=== PATIENT | male | born 1940 | race Caucasian/White ===

== ENCOUNTER 2017-07-08 05:46 | Day surgery (SDC) | payer MEDICARE, BC, OTHER ==
[2017-07-08] MEDS: LR 1,000 ML IV (06:45)
[2017-07-08] MEDS: LIDOCAINE 1% SDV INJ 30 ML VIAL As Ordered (07:00)
[2017-07-08] MEDS: LIDOCAINE VISCOUS 2% SOLN 15ML UDC As Ordered (07:00)
[2017-07-08] MEDS: EPINEPHrine 1MG/10ML SYRINGE 1.5IN As Ordered (07:00)
[2017-07-08] MEDS: THROMBIN SOLN 5,000 UNITS VIAL As Ordered (07:00)
[2017-07-08] MEDS ORDERED: ePHEDrine SULFATE 25 MG/5 ML(5MG/ML) SYRINGE As Ordered (07:49)
[2017-07-08] MEDS ORDERED: ROCURONIUM BROMIDE 50 MG/5 ML VIAL As Ordered (07:49)
[2017-07-08] MEDS ORDERED: fentaNYL 100 MCG/2 ML INJECTION (J3010) As Ordered (07:49)
[2017-07-08] MEDS ORDERED: PROPOFOL 200 MG/20 ML VIAL As Ordered (07:49)
[2017-07-08] MEDS ORDERED: LIDOCAINE 2% INJ 100 MG/5 ML SDV (FOR ANES.) As Ordered (07:49)
[2017-07-08] MEDS ORDERED: MIDAZOLAM INJ 2 MG/2 ML VIAL (J2250) As Ordered (07:49)
[2017-07-08] MEDS: CETACAINE SPRAY 5GM As Ordered (07:58)
[2017-07-08] MEDS ORDERED: METOCLOPRAMIDE INJ 10MG/2ML VIAL (J2765) As Ordered (08:08)
[2017-07-08] MEDS ORDERED: ONDANSETRON 4MG/2ML VIAL (J2405) As Ordered (08:08)
[2017-07-08] MEDS ORDERED: GLYCOPYRROLATE INJ 0.2 MG/ML 2 ML VIAL As Ordered (08:11)
[2017-07-08] MEDS ORDERED: NEOSTIGMINE 10 MG/10 ML VIAL (J2710) As Ordered (08:11)
[2017-07-08] MEDS ORDERED: SUGAMMADEX SODIUM 500 MG/5 ML VIAL (BRIDION) As Ordered (08:13)
[2017-07-08] MEDS ORDERED: ONDANSETRON 4MG/2ML VIAL (J2405) IV (08:45)
[2017-07-08] MEDS ORDERED: PERCOCET 5MG/325MG TAB PO (08:45)
[2017-07-08] MEDS ORDERED: fentaNYL 100 MCG/2 ML INJECTION (J3010) IV (08:45)
[2017-07-08] MEDS ORDERED: LR 1,000 ML IV (08:45)
[2017-07-08] MEDS ORDERED: METOCLOPRAMIDE INJ 10MG/2ML VIAL (J2765) IV (08:45)
== END 2017-07-08 09:57 | disposition home or self-care (01) ==
LOC: M SDC 05:46
DX: C34.32 Malignant neoplasm of lower lobe, left bronchus or lung (principal); R10.12 Left upper quadrant pain; K21.9 Gastro-esophageal reflux disease without esophagitis; E78.00 Pure hypercholesterolemia, unspecified; Z79.82 Long term (current) use of aspirin; Z87.891 Personal history of nicotine dependence; Z79.899 Other long term (current) drug therapy; Z88.0 Allergy status to penicillin
CPT/HCPCS: 31623

== ENCOUNTER → 2017-07-14 | Outpatient (REF) | payer MEDICARE, BC, OTHER ==
[2017-07-17 12:53] LABS: IONIZED CALCIUM 5.3 MG/DL (4.5-5.3)
== END ==
LOC: M LAB REF 16:53
DX: C34.82 Malignant neoplasm of overlapping sites of left bronchus and lung (principal)
CPT/HCPCS: 82330

== ENCOUNTER → 2017-07-17 | Outpatient (CLI) | payer MEDICARE, BC, OTHER | LOC: M CARPUL 17:07 | DX: C34.32 Malignant neoplasm of lower lobe, left bronchus or lung (principal) | CPT/HCPCS: 94060 ==

== ENCOUNTER → 2017-07-30 | Outpatient (REF) | payer MEDICARE, OTHER ==
[2017-07-30 17:35] LABS: INR 0.95; PROTHROMBIN TIME 12.8 SECONDS (12.4-14.5)
[2017-07-30 17:36] LABS: PARTIAL THROMBOPLASTIN TIME 36.6 SECONDS (26.8-37.9)
== END ==
LOC: M LAB REF 16:35
DX: C34.32 Malignant neoplasm of lower lobe, left bronchus or lung (principal); C79.51 Secondary malignant neoplasm of bone; Z79.01 Long term (current) use of anticoagulants
CPT/HCPCS: 85610

== ENCOUNTER → 2017-08-05 | Outpatient (CLI) | payer MEDICARE, BC, OTHER ==
[~2017-08-05] MED LIST: CLINDAMYCIN 600 MG/50 ML PREMIX BAG As Ordered; LIDOCAINE 2% MDV 20 ML VIAL As Ordered
== END | disposition home or self-care (01) ==
LOC: M IRPRO 10:22
DX: C34.90 Malignant neoplasm of unspecified part of unspecified bronchus or lung (principal)
CPT/HCPCS: 36561

== ENCOUNTER → 2017-08-12 | Outpatient (CLI) | payer MEDICARE, OTHER | LOC: M ONCR 10:17 | DX: C34.32 Malignant neoplasm of lower lobe, left bronchus or lung (principal); C79.51 Secondary malignant neoplasm of bone | CPT/HCPCS: G0463 ==

== ENCOUNTER 2017-08-14 09:04 | Outpatient (RCR) | payer MEDICARE, OTHER | END 2017-09-09 | LOC: M ONCR 09:04 | DX: C79.51 Secondary malignant neoplasm of bone (principal); C34.32 Malignant neoplasm of lower lobe, left bronchus or lung | CPT/HCPCS: 77300 ==

== ENCOUNTER → 2017-10-15 | Outpatient (CLI) | payer MEDICARE, OTHER, BC | LOC: M ONCR 13:21 | DX: C34.32 Malignant neoplasm of lower lobe, left bronchus or lung (principal); C79.51 Secondary malignant neoplasm of bone | CPT/HCPCS: G0463 ==

== ENCOUNTER → 2017-10-27 | Outpatient (CLI) | payer MEDICARE, BC, OTHER ==
[~2017-10-27] MED LIST changes: -CLINDAMYCIN 600 MG/50 ML PREMIX BAG As Ordered; +GASTROGRAFIN SOLUTION 30ML (Q9963) As Ordered; +ISOVUE-370 76% 100ML VIAL (Q9967) As Ordered; -LIDOCAINE 2% MDV 20 ML VIAL As Ordered
== END ==
LOC: M RAD 09:43
DX: C79.51 Secondary malignant neoplasm of bone (principal); C34.32 Malignant neoplasm of lower lobe, left bronchus or lung; K57.30 Diverticulosis of large intestine without perforation or abscess without bleeding
CPT/HCPCS: Q9963

== ENCOUNTER 2017-11-27 09:16 | Day surgery (SDC) | payer MEDICARE, BC, OTHER ==
[~2017-11-27 09:16] MED LIST changes: -GASTROGRAFIN SOLUTION 30ML (Q9963) As Ordered; -ISOVUE-370 76% 100ML VIAL (Q9967) As Ordered; +MIDAZOLAM INJ 2 MG/2 ML VIAL (J2250) As Ordered; +TROPICAMIDE 1% OPHTH SOLN 2ML OS; +fentaNYL 100 MCG/2 ML INJECTION (J3010) As Ordered
[2017-11-27] MEDS: PROPARACAINE 0.5% OPHTH SOL 15ML OS (10:24)
[2017-11-27] MEDS: OFLOXACIN 0.3 % (OCUFLOX) OPTH SOL 5ML OS (10:24)
[2017-11-27] MEDS: PHENYLEPHRINE 2.5% OPHTH SOL 2ML OS (10:25)
[2017-11-27] MEDS: POVIDONE-IODINE 5% OPHTH PREP SOL 30ML As Ordered (11:32)
[2017-11-27] MEDS: DUOVISC (0.50ML VISCOAT/0.55ML PROVISC) OPHTH KIT As Ordered (11:36)
[2017-11-27] MEDS: MOXIFLOXACIN IN BSS 0.25MG/0.25ML INTRACAMERAL INJ (OR EYE ONLY)(J2280) As Ordered (11:36)
[2017-11-27] MEDS: BALANCED SALT IRRIGATION SOLUTION 500ML BAG (FOR OR EYE MACHINE) As Ordered (11:36)
[2017-11-27] MEDS: LIDOCAINE 0.75%/EPINEPHRINE 0.025% IN BSS 1ML SYR INTRACAMERAL (OR ONLY) As Ordered (11:36)
== END 2017-11-27 12:25 | disposition home or self-care (01) ==
LOC: M SDC 09:16
DX: H25.12 Age-related nuclear cataract, left eye (principal); K21.9 Gastro-esophageal reflux disease without esophagitis; Z88.0 Allergy status to penicillin; Z79.82 Long term (current) use of aspirin; Z79.899 Other long term (current) drug therapy; Z87.891 Personal history of nicotine dependence; Z92.21 Personal history of antineoplastic chemotherapy; Z85.118 Personal history of other malignant neoplasm of bronchus and lung
CPT/HCPCS: 66984

== ENCOUNTER 2017-12-04 06:29 | Day surgery (SDC) | payer MEDICARE, BC, OTHER ==
[2017-12-04] MEDS: PROPARACAINE 0.5% OPHTH SOL 15ML OD (06:52)
[2017-12-04] MEDS: TROPICAMIDE 1% OPHTH SOLN 2ML OD (06:52)
[2017-12-04] MEDS: PHENYLEPHRINE 2.5% OPHTH SOL 2ML OD (06:52)
[2017-12-04] MEDS: OFLOXACIN 0.3 % (OCUFLOX) OPTH SOL 5ML OD (06:52)
[2017-12-04] MEDS ORDERED: MIDAZOLAM INJ 2 MG/2 ML VIAL (J2250) As Ordered (07:08)
[2017-12-04] MEDS ORDERED: fentaNYL 100 MCG/2 ML INJECTION (J3010) As Ordered (07:08)
[2017-12-04] MEDS: BALANCED SALT IRRIGATION SOLUTION 500ML BAG (FOR OR EYE MACHINE) As Ordered (08:39)
[2017-12-04] MEDS: DUOVISC (0.50ML VISCOAT/0.55ML PROVISC) OPHTH KIT As Ordered ×2 (08:39→08:42)
[2017-12-04] MEDS: LIDOCAINE 0.75%/EPINEPHRINE 0.025% IN BSS 1ML SYR INTRACAMERAL (OR ONLY) As Ordered (08:39)
[2017-12-04] MEDS: POVIDONE-IODINE 5% OPHTH PREP SOL 30ML As Ordered (08:39)
[2017-12-04] MEDS: MOXIFLOXACIN IN BSS 0.25MG/0.25ML INTRACAMERAL INJ (OR EYE ONLY)(J2280) As Ordered (08:39)
== END 2017-12-04 09:12 | disposition home or self-care (01) ==
LOC: M SDC 06:29
DX: H25.11 Age-related nuclear cataract, right eye (principal); K21.9 Gastro-esophageal reflux disease without esophagitis; Z88.0 Allergy status to penicillin; Z87.891 Personal history of nicotine dependence; Z79.82 Long term (current) use of aspirin; Z79.899 Other long term (current) drug therapy; Z85.118 Personal history of other malignant neoplasm of bronchus and lung
CPT/HCPCS: 66984

== ENCOUNTER → 2017-12-23 | Outpatient (CLI) | payer MEDICARE, BC, OTHER | LOC: M RAD 15:48 | DX: C34.90 Malignant neoplasm of unspecified part of unspecified bronchus or lung (principal); J90 Pleural effusion, not elsewhere classified ==

== ENCOUNTER 2017-12-24 19:00 | Inpatient (IN) | payer MEDICARE, BC, OTHER ==
[2017-12-24] MEDS: NS 500 ML IV (19:30)
[2017-12-24 19:37] LABS: BASO # 0.1 10^3/uL (0.0-0.2); BASO % 0.5 % (0.0-1.0); EOS # 0.1 10^3/uL (0.0-0.50); EOS % 0.9 % (0.0-3.0); HEMATOCRIT 34.1 % (42.0-52.0); HEMOGLOBIN 11.4 g/dl (13.5-17.5); IMMATURE GRANULOCYTE % 1.2 % (0-3.0); LYMPH # 1.4 10^3/uL (1.5-4.5); LYMPH % 9.4 % (24.0-44.0); MEAN CORPUSCULAR HEMOGLOBIN 29.6 pg (27.0-33.0); MEAN CORPUSCULAR HGB CONC 33.4 g/dl (32.0-36.5); MEAN CORPUSCULAR VOLUME 88.6 fl (80.0-96.0); MONO # 1.4 10^3/uL (0.0-0.8); MONO % 9.5 % (0.0-5.0); NEUTROPHILS # 11.5 10^3/uL (1.8-7.7); NEUTROPHILS % 78.5 % (36.0-66.0); PLATELET COUNT, AUTOMATED 259 10^3/uL (150-450); RED BLOOD COUNT 3.85 10^6/uL (4.30-6.10); RED CELL DISTRIBUTION WIDTH 14.1 % (11.5-14.5); WHITE BLOOD COUNT 14.7 10^3/uL (4.0-10.0)
[2017-12-24 19:47] LABS: LACTIC ACID SEPSIS PROTOCOL 1.6 MMOL/L (0.4-2.0)
[2017-12-24 20:02] LABS: ALBUMIN 2.3 GM/DL (3.2-5.2); ALBUMIN/GLOBULIN RATIO 0.59 (1.00-1.93); ALKALINE PHOSPHATASE 169 U/L (45-117); ALT/SGPT 67 U/L (12-78); ANION GAP 10 MEQ/L (8-16); AST/SGOT 66 U/L (7-37); BILIRUBIN,DIRECT 0.2 MG/DL (0.0-0.2); BILIRUBIN,TOTAL 0.5 MG/DL (0.2-1.0); BLOOD UREA NITROGEN 12 MG/DL (7-18); CALCIUM LEVEL 7.8 MG/DL (8.8-10.2); CARBON DIOXIDE LEVEL 25 MEQ/L (21-32); CHLORIDE LEVEL 95 MEQ/L (98-107); CPK CREATINE PHOSPHOKINASE 104 U/L (39-308); CREATININE FOR GFR 0.69 MG/DL (0.70-1.30); GLOMERULAR FILTRATION RATE > 60.0 (>42); GLUCOSE, FASTING 220 MG/DL (70-100); MB/CK RELATIVE INDEX 9.81 (< OR =4); POTASSIUM SERUM 4.5 MEQ/L (3.5-5.1); SODIUM LEVEL 130 MEQ/L (136-145); TOTAL PROTEIN 6.2 GM/DL (6.4-8.2); TROPONIN I 2.48 NG/ML (< 0.10)
[2017-12-24] MEDS: MOXIFLOXACIN HCL 400 MG in APPROPRIATE DILUENT 1 EA IV (20:22)
[2017-12-24 20:37] LABS: ABG BASE EXCESS -2.5 (-2.0-2.0); ABG HCO3 19.7 MEQ/L (22.0-26.0); ABG O2 SATURATION 91.9 % (95.0-99.0); ABG PARTIAL PRESSURE CO2 26.8 mmHg (35.0-45.0); ABG PARTIAL PRESSURE O2 61.3 mmHg (75.0-100.0); ABG STANDARD HCO3 22.3 MEQ/L (22.0-26.0); ABG TOTAL CO2 20.6 MEQ/L (23.0-31.0); ABG pH (ARTERIAL) 7.485 UNITS (7.350-7.450)
[2017-12-24] MEDS ORDERED: ALBUTEROL 90 MCG/ACT 8GM HFA INHALER INH (22:45)
[2017-12-24] MEDS ORDERED: NORCO, ANEXSIA 5/325MG TABLET (HYDROcodone/ACETAMINOPHEN) PO (22:45)
[2017-12-24] MEDS ORDERED: VANCOMYCIN HCL 15 MG in IV FLUID PLACE HOLDER 1 EA IV (23:00)
[2017-12-25 00:46] LABS: TROPONIN I 4.91 NG/ML (< 0.10)
[2017-12-25] MEDS: VANCOMYCIN HCL 1,000 MG, VIAL MATE ADAPTER 1 EACH in D5W 250 ML IV ×3 (01:28→17:41)
[2017-12-25] MEDS: methylPREDNISolone INJ 125 MG/2 ML VIAL (J2930) IV ×3 (01:28→16:59)
[2017-12-25] MEDS: NS 1,000 ML IV ×2 (01:28→08:33)
[2017-12-25] MEDS: CEFEPIME HCL 2 GM in D5W MINI-BAG PLUS 50 ML IV ×3 (03:16→16:59)
[2017-12-25 03:18] LABS: TROPONIN I 5.48 NG/ML (< 0.10)
[2017-12-25] MEDS: LEVALBUTEROL 1.25 MG/0.5 ML CONCENTRATE NEB INH (04:57)
[2017-12-25] MEDS: PROPRANOLOL 10 MG TAB PO ×5 (06:00→23:47)
[2017-12-25 06:53] LABS: BASO % 0.3 % (0.0-1.0); EOS % 0.2 % (0.0-3.0); HEMATOCRIT 34.8 % (42.0-52.0); HEMOGLOBIN 11.6 g/dl (13.5-17.5); IMMATURE GRANULOCYTE % 1.3 % (0-3.0); LYMPH # 0.6 10^3/uL (1.5-4.5); LYMPH % 4.2 % (24.0-44.0); MEAN CORPUSCULAR HEMOGLOBIN 29.2 pg (27.0-33.0); MEAN CORPUSCULAR HGB CONC 33.3 g/dl (32.0-36.5); MEAN CORPUSCULAR VOLUME 87.7 fl (80.0-96.0); MONO # 0.4 10^3/uL (0.0-0.8); MONO % 2.7 % (0.0-5.0); NEUTROPHILS # 12.6 10^3/uL (1.8-7.7); NEUTROPHILS % 91.3 % (36.0-66.0); PLATELET COUNT, AUTOMATED 255 10^3/uL (150-450); RED BLOOD COUNT 3.97 10^6/uL (4.30-6.10); WHITE BLOOD COUNT 13.8 10^3/uL (4.0-10.0)
[2017-12-25 07:16] LABS: NT-PRO BNP 8205 PG/ML (<450)
[2017-12-25 07:29] LABS: ANION GAP 9 MEQ/L (8-16); BLOOD UREA NITROGEN 11 MG/DL (7-18); CALCIUM LEVEL 7.7 MG/DL (8.8-10.2); CARBON DIOXIDE LEVEL 26 MEQ/L (21-32); CHLORIDE LEVEL 98 MEQ/L (98-107); GLOMERULAR FILTRATION RATE > 60.0 (>42); GLUCOSE, FASTING 243 MG/DL (70-100); MAGNESIUM LEVEL 1.8 MG/DL (1.8-2.4); POTASSIUM SERUM 4.3 MEQ/L (3.5-5.1); SODIUM LEVEL 133 MEQ/L (136-145); TROPONIN I 4.08 NG/ML (< 0.10)
[2017-12-25] MEDS: ASPIRIN 81 MG ENTERIC TAB PO (08:30)
[2017-12-25] MEDS: SENOKOT S TAB PO ×2 (08:30→21:35)
[2017-12-25] MEDS: OMEPRAZOLE 20 MG CAP PO (08:30)
[2017-12-25] MEDS: CLOPIDOGREL 75 MG TAB PO (08:30)
[2017-12-25] MEDS: ATORVASTATIN 20 MG TAB PO (08:31)
[2017-12-25] MEDS ORDERED: ASPIRIN 81 MG ENTERIC TAB PO (09:00)
[2017-12-25] MEDS ORDERED: NAPROXEN 250 MG TAB PO (09:00)
[2017-12-25] MEDS ORDERED: ONDANSETRON 4MG/2ML VIAL (J2405) As Ordered (09:33)
[2017-12-25] MEDS: ONDANSETRON 4MG/2ML VIAL (J2405) IV (09:40)
[2017-12-25 11:34] LABS: TROPONIN I 3.43 NG/ML (< 0.10)
[2017-12-25] MEDS: FUROSEMIDE 20 MG/2 ML VIAL (J1940) IV (12:06)
[2017-12-25] MEDS ORDERED: SLF 3 ML SYR IV (15:15)
[2017-12-25 15:27] LABS: TROPONIN I 3.26 NG/ML (< 0.10)
[2017-12-25] MEDS: prednisoLONE ACET 1% OPHTH SUSP 5ML OD (16:59)
[2017-12-25] MEDS: PANTOPRAZOLE 40MG INJ (PROTONIX) (C9113) IV (17:40)
[2017-12-25] MEDS: SLF 3 ML SYR IV (21:35)
[2017-12-26] MEDS: methylPREDNISolone INJ 125 MG/2 ML VIAL (J2930) IV ×3 (00:01→17:07)
[2017-12-26] MEDS: CEFEPIME HCL 2 GM in D5W MINI-BAG PLUS 50 ML IV ×3 (00:01→17:07)
[2017-12-26 05:08] LABS: BASO % 0.1 % (0.0-1.0); HEMATOCRIT 36.2 % (42.0-52.0); HEMOGLOBIN 11.9 g/dl (13.5-17.5); LYMPH # 0.7 10^3/uL (1.5-4.5); LYMPH % 4.9 % (24.0-44.0); MEAN CORPUSCULAR HEMOGLOBIN 29.2 pg (27.0-33.0); MEAN CORPUSCULAR HGB CONC 32.9 g/dl (32.0-36.5); MEAN CORPUSCULAR VOLUME 88.9 fl (80.0-96.0); MONO # 0.7 10^3/uL (0.0-0.8); NEUTROPHILS # 12.8 10^3/uL (1.8-7.7); PLATELET COUNT, AUTOMATED 265 10^3/uL (150-450); RED BLOOD COUNT 4.07 10^6/uL (4.30-6.10); WHITE BLOOD COUNT 14.4 10^3/uL (4.0-10.0)
[2017-12-26] MEDS: PROPRANOLOL 10 MG TAB PO (05:11)
[2017-12-26 05:23] LABS: ANION GAP 8 MEQ/L (8-16); BLOOD UREA NITROGEN 18 MG/DL (7-18); CALCIUM LEVEL 7.7 MG/DL (8.8-10.2); CARBON DIOXIDE LEVEL 27 MEQ/L (21-32); CHLORIDE LEVEL 98 MEQ/L (98-107); CREATININE FOR GFR 0.64 MG/DL (0.70-1.30); GLOMERULAR FILTRATION RATE > 60.0 (>42); GLUCOSE, FASTING 314 MG/DL (70-100); MAGNESIUM LEVEL 2.1 MG/DL (1.8-2.4); POTASSIUM SERUM 4.5 MEQ/L (3.5-5.1); SODIUM LEVEL 133 MEQ/L (136-145); VANCOMYCIN LEVEL TROUGH 11.1 UG/ML (10.0-20.0)
[2017-12-26] MEDS: SLF 3 ML SYR IV ×3 (06:00→22:00)
[2017-12-26] MEDS: VANCOMYCIN HCL 1,000 MG, VIAL MATE ADAPTER 1 EACH in D5W 250 ML IV ×2 (06:13→17:54)
[2017-12-26] MEDS: VANCOMYCIN HCL 500 MG in D5W MINI-BAG PLUS 100 ML IV (07:31)
[2017-12-26] MEDS: PANTOPRAZOLE 40MG INJ (PROTONIX) (C9113) IV (08:22)
[2017-12-26] MEDS: ATORVASTATIN 20 MG TAB PO (08:22)
[2017-12-26] MEDS: CLOPIDOGREL 75 MG TAB PO (08:23)
[2017-12-26] MEDS: SENOKOT S TAB PO ×2 (08:23→21:00)
[2017-12-26] MEDS: ASPIRIN 81 MG ENTERIC TAB PO (08:23)
[2017-12-26] MEDS ORDERED: RAMIPRIL 1.25 MG CAP PO (09:00)
[2017-12-26] MEDS ORDERED: FUROSEMIDE 20 MG/2 ML VIAL (J1940) As Ordered (09:32)
[2017-12-26] MEDS: FUROSEMIDE 20 MG/2 ML VIAL (J1940) IV (09:38)
[2017-12-26] MEDS: CARVedilol 3.125 MG TAB PO ×2 (11:45→17:51)
[2017-12-26] MEDS: SPIRONOLACTONE 12.5MG PER 1/2 TABLET PO (12:00)
[2017-12-26] MEDS: prednisoLONE ACET 1% OPHTH SUSP 5ML OD (17:07)
[2017-12-27] MEDS: CEFEPIME HCL 2 GM in D5W MINI-BAG PLUS 50 ML IV ×3 (00:49→17:00)
[2017-12-27] MEDS: FUROSEMIDE 20 MG/2 ML VIAL (J1940) IV ×2 (00:50→12:12)
[2017-12-27] MEDS: methylPREDNISolone INJ 125 MG/2 ML VIAL (J2930) IV ×3 (00:50→20:49)
[2017-12-27 04:20] LABS: BASO % 0.1 % (0.0-1.0); HEMATOCRIT 35.3 % (42.0-52.0); HEMOGLOBIN 11.6 g/dl (13.5-17.5); IMMATURE GRANULOCYTE % 0.8 % (0-3.0); LYMPH # 0.6 10^3/uL (1.5-4.5); LYMPH % 3.8 % (24.0-44.0); MEAN CORPUSCULAR HEMOGLOBIN 28.6 pg (27.0-33.0); MEAN CORPUSCULAR HGB CONC 32.9 g/dl (32.0-36.5); MEAN CORPUSCULAR VOLUME 87.2 fl (80.0-96.0); MONO # 0.8 10^3/uL (0.0-0.8); MONO % 4.6 % (0.0-5.0); NEUTROPHILS # 15.4 10^3/uL (1.8-7.7); NEUTROPHILS % 90.7 % (36.0-66.0); PLATELET COUNT, AUTOMATED 229 10^3/uL (150-450); RED BLOOD COUNT 4.05 10^6/uL (4.30-6.10); RED CELL DISTRIBUTION WIDTH 13.8 % (11.5-14.5); WHITE BLOOD COUNT 16.9 10^3/uL (4.0-10.0)
[2017-12-27 04:41] LABS: ANION GAP 7 MEQ/L (8-16); BLOOD UREA NITROGEN 25 MG/DL (7-18); C REACTIVE PROTEIN QUANTITATIV 8.16 MG/DL (0.00-0.30); CALCIUM LEVEL 7.6 MG/DL (8.8-10.2); CARBON DIOXIDE LEVEL 30 MEQ/L (21-32); CHLORIDE LEVEL 96 MEQ/L (98-107); CREATININE FOR GFR 0.78 MG/DL (0.70-1.30); GLOMERULAR FILTRATION RATE > 60.0 (>42); GLUCOSE, FASTING 370 MG/DL (70-100); MAGNESIUM LEVEL 2.2 MG/DL (1.8-2.4); POTASSIUM SERUM 3.9 MEQ/L (3.5-5.1); SODIUM LEVEL 133 MEQ/L (136-145)
[2017-12-27] MEDS: SLF 3 ML SYR IV ×3 (06:39→20:49)
[2017-12-27] MEDS: VANCOMYCIN HCL 1,000 MG, VIAL MATE ADAPTER 1 EACH in D5W 250 ML IV ×2 (06:40→17:51)
[2017-12-27] MEDS: CARVedilol 3.125 MG TAB PO ×4 (06:40→17:51)
[2017-12-27] MEDS: SPIRONOLACTONE 12.5MG PER 1/2 TABLET PO (08:14)
[2017-12-27] MEDS: SENOKOT S TAB PO ×2 (08:14→20:49)
[2017-12-27] MEDS: CLOPIDOGREL 75 MG TAB PO (08:14)
[2017-12-27] MEDS: ATORVASTATIN 20 MG TAB PO (08:14)
[2017-12-27] MEDS: ASPIRIN 81 MG ENTERIC TAB PO (08:14)
[2017-12-27] MEDS: PANTOPRAZOLE 40MG INJ (PROTONIX) (C9113) IV (08:14)
[2017-12-27] MEDS ORDERED: GLUCOSE 4 GM CHEW TABLET PO (09:00)
[2017-12-27] MEDS ORDERED: DEXTROSE 50% 50 ML SYRINGE IV (09:00)
[2017-12-27] MEDS ORDERED: GLUCAGON FOR INJ 1 MG VIAL (J1610) SC (09:00)
[2017-12-27 09:59] LABS: ESTIMATED AVERAGE GLUCOSE 171 MG/DL (60-110); HEMOGLOBIN A1c 7.6 %
[2017-12-27 12:31] LABS: BEDSIDE GLUCOSE 348 MG/DL (83-110)
[2017-12-27] MEDS: HumaLOG INSULIN (NovoLOG) PER UNIT SC ×3 (12:37→20:49)
[2017-12-27 16:53] LABS: BEDSIDE GLUCOSE 242 MG/DL (83-110)
[2017-12-27] MEDS: prednisoLONE ACET 1% OPHTH SUSP 5ML OD (17:00)
[2017-12-27 17:30] LABS: VANCOMYCIN LEVEL TROUGH 13.1 UG/ML (10.0-20.0)
[2017-12-27 20:45] LABS: BEDSIDE GLUCOSE 218 MG/DL (83-110)
[2017-12-28] MEDS: FUROSEMIDE 20 MG/2 ML VIAL (J1940) IV ×2 (00:49→10:11)
[2017-12-28] MEDS: CARVedilol 3.125 MG TAB PO ×5 (00:49→18:00)
[2017-12-28] MEDS: CEFEPIME HCL 2 GM in D5W MINI-BAG PLUS 50 ML IV ×3 (00:50→16:58)
[2017-12-28] MEDS: SLF 3 ML SYR IV ×3 (00:50→22:00)
[2017-12-28] MEDS: VANCOMYCIN HCL 750 MG, VIAL MATE ADAPTER 1 EACH in D5W 250 ML IV ×4 (00:50→17:39)
[2017-12-28 04:32] LABS: BASO % 0.1 % (0.0-1.0); HEMATOCRIT 36.5 % (42.0-52.0); HEMOGLOBIN 12.2 g/dl (13.5-17.5); IMMATURE GRANULOCYTE % 0.9 % (0-3.0); LYMPH # 0.8 10^3/uL (1.5-4.5); LYMPH % 5.1 % (24.0-44.0); MEAN CORPUSCULAR HEMOGLOBIN 28.8 pg (27.0-33.0); MEAN CORPUSCULAR HGB CONC 33.4 g/dl (32.0-36.5); MEAN CORPUSCULAR VOLUME 86.3 fl (80.0-96.0); MONO # 0.7 10^3/uL (0.0-0.8); MONO % 4.9 % (0.0-5.0); NEUTROPHILS # 13.1 10^3/uL (1.8-7.7); PLATELET COUNT, AUTOMATED 220 10^3/uL (150-450); RED BLOOD COUNT 4.23 10^6/uL (4.30-6.10); RED CELL DISTRIBUTION WIDTH 13.7 % (11.5-14.5); WHITE BLOOD COUNT 14.7 10^3/uL (4.0-10.0)
[2017-12-28 04:52] LABS: ANION GAP 9 MEQ/L (8-16); BLOOD UREA NITROGEN 26 MG/DL (7-18); C REACTIVE PROTEIN QUANTITATIV 4.81 MG/DL (0.00-0.30); CALCIUM LEVEL 7.3 MG/DL (8.8-10.2); CARBON DIOXIDE LEVEL 30 MEQ/L (21-32); CHLORIDE LEVEL 93 MEQ/L (98-107); GLOMERULAR FILTRATION RATE > 60.0 (>42); GLUCOSE, FASTING 267 MG/DL (70-100); MAGNESIUM LEVEL 2.3 MG/DL (1.8-2.4); POTASSIUM SERUM 4.1 MEQ/L (3.5-5.1); SODIUM LEVEL 132 MEQ/L (136-145)
[2017-12-28 08:05] LABS: BEDSIDE GLUCOSE 271 MG/DL (83-110)
[2017-12-28] MEDS: methylPREDNISolone INJ 125 MG/2 ML VIAL (J2930) IV (09:20)
[2017-12-28] MEDS: PANTOPRAZOLE 40MG INJ (PROTONIX) (C9113) IV (09:20)
[2017-12-28] MEDS: HumaLOG INSULIN (NovoLOG) PER UNIT SC ×4 (09:21→20:30)
[2017-12-28] MEDS: ATORVASTATIN 20 MG TAB PO (09:55)
[2017-12-28] MEDS: CLOPIDOGREL 75 MG TAB PO (09:55)
[2017-12-28] MEDS: SPIRONOLACTONE 12.5MG PER 1/2 TABLET PO (09:55)
[2017-12-28] MEDS: ASPIRIN 81 MG ENTERIC TAB PO (09:55)
[2017-12-28] MEDS: SENOKOT S TAB PO ×2 (09:55→20:29)
[2017-12-28 10:17] LABS: ABG BASE EXCESS 6.6 (-2.0-2.0); ABG HCO3 29.2 MEQ/L (22.0-26.0); ABG O2 SATURATION 93.6 % (95.0-99.0); ABG PARTIAL PRESSURE O2 67.4 mmHg (75.0-100.0); ABG STANDARD HCO3 30.4 MEQ/L (22.0-26.0); ABG TOTAL CO2 30.3 MEQ/L (23.0-31.0); ABG pH (ARTERIAL) 7.539 UNITS (7.350-7.450)
[2017-12-28 10:28] LABS: CPK CREATINE PHOSPHOKINASE 52 U/L (39-308); MB/CK RELATIVE INDEX 5.38 (< OR =4); TROPONIN I 2.11 NG/ML (< 0.10)
[2017-12-28] MEDS ORDERED: FUROSEMIDE 20 MG/2 ML VIAL (J1940) IV (12:00)
[2017-12-28 12:03] LABS: BEDSIDE GLUCOSE 316 MG/DL (83-110)
[2017-12-28 16:26] LABS: CPK CREATINE PHOSPHOKINASE 70 U/L (39-308); MB/CK RELATIVE INDEX 3.29 (< OR =4); TROPONIN I 2.21 NG/ML (< 0.10)
[2017-12-28] MEDS: prednisoLONE ACET 1% OPHTH SUSP 5ML OD (16:58)
[2017-12-28 18:31] LABS: BEDSIDE GLUCOSE 166 MG/DL (83-110)
[2017-12-28 20:18] LABS: BEDSIDE GLUCOSE 199 MG/DL (83-110)
[2017-12-28] MEDS: LEVEMIR (INSULIN DETEMIR) 1 UNITS/0.01ML SC (20:30)
[2017-12-28] MEDS: methylPREDNISolone INJ 40 MG/1 ML VIAL (J2920) IV (20:30)
[2017-12-28 22:43] LABS: CPK CREATINE PHOSPHOKINASE 74 U/L (39-308)
[2017-12-29] MEDS: FUROSEMIDE 20 MG/2 ML VIAL (J1940) IV (00:42)
[2017-12-29] MEDS: CEFEPIME HCL 2 GM in D5W MINI-BAG PLUS 50 ML IV ×3 (00:43→17:05)
[2017-12-29] MEDS: CARVedilol 3.125 MG TAB PO ×4 (00:43→17:45)
[2017-12-29] MEDS: VANCOMYCIN HCL 750 MG, VIAL MATE ADAPTER 1 EACH in D5W 250 ML IV ×3 (01:41→17:45)
[2017-12-29 04:12] LABS: BASO % 0.1 % (0.0-1.0); EOS % 0.1 % (0.0-3.0); HEMATOCRIT 37.2 % (42.0-52.0); HEMOGLOBIN 12.6 g/dl (13.5-17.5); IMMATURE GRANULOCYTE % 0.9 % (0-3.0); LYMPH # 0.9 10^3/uL (1.5-4.5); LYMPH % 5.4 % (24.0-44.0); MEAN CORPUSCULAR HEMOGLOBIN 28.8 pg (27.0-33.0); MEAN CORPUSCULAR HGB CONC 33.9 g/dl (32.0-36.5); MEAN CORPUSCULAR VOLUME 84.9 fl (80.0-96.0); MONO # 0.9 10^3/uL (0.0-0.8); MONO % 5.7 % (0.0-5.0); NEUTROPHILS # 14.1 10^3/uL (1.8-7.7); NEUTROPHILS % 87.8 % (36.0-66.0); PLATELET COUNT, AUTOMATED 230 10^3/uL (150-450); RED BLOOD COUNT 4.38 10^6/uL (4.30-6.10); RED CELL DISTRIBUTION WIDTH 13.6 % (11.5-14.5)
[2017-12-29 04:34] LABS: ANION GAP 10 MEQ/L (8-16); BLOOD UREA NITROGEN 25 MG/DL (7-18); C REACTIVE PROTEIN QUANTITATIV 3.24 MG/DL (0.00-0.30); CARBON DIOXIDE LEVEL 29 MEQ/L (21-32); CHLORIDE LEVEL 88 MEQ/L (98-107); CPK CREATINE PHOSPHOKINASE 71 U/L (39-308); CREATININE FOR GFR 0.67 MG/DL (0.70-1.30); GLOMERULAR FILTRATION RATE > 60.0 (>42); GLUCOSE, FASTING 321 MG/DL (70-100); MAGNESIUM LEVEL 2.2 MG/DL (1.8-2.4); MB/CK RELATIVE INDEX 2.82 (< OR =4); POTASSIUM SERUM 3.5 MEQ/L (3.5-5.1); SODIUM LEVEL 127 MEQ/L (136-145); TROPONIN I 2.03 NG/ML (< 0.10)
[2017-12-29] MEDS: SLF 3 ML SYR IV ×3 (05:14→22:00)
[2017-12-29 08:02] LABS: BEDSIDE GLUCOSE 266 MG/DL (83-110)
[2017-12-29] MEDS: ATORVASTATIN 20 MG TAB PO (09:00)
[2017-12-29] MEDS: SPIRONOLACTONE 12.5MG PER 1/2 TABLET PO (09:00)
[2017-12-29] MEDS: SENOKOT S TAB PO ×2 (09:00→20:32)
[2017-12-29] MEDS: HumaLOG INSULIN (NovoLOG) PER UNIT SC ×4 (09:08→20:32)
[2017-12-29] MEDS: POTASSIUM CHLORIDE 10 MEQ SR TABLET PO (09:09)
[2017-12-29] MEDS: ASPIRIN 81 MG ENTERIC TAB PO (09:11)
[2017-12-29] MEDS: CLOPIDOGREL 75 MG TAB PO (09:11)
[2017-12-29] MEDS: methylPREDNISolone INJ 40 MG/1 ML VIAL (J2920) IV ×2 (09:12→20:31)
[2017-12-29] MEDS: PANTOPRAZOLE 40MG INJ (PROTONIX) (C9113) IV (09:14)
[2017-12-29] MEDS: FUROSEMIDE 40 MG/4 ML VIAL (J1940) IV ×2 (09:14→17:06)
[2017-12-29 09:16] LABS: PROCALCITONIN 0.13 NG/ML (<0.10)
[2017-12-29 09:20] LABS: VANCOMYCIN LEVEL TROUGH 17.3 UG/ML (10.0-20.0)
[2017-12-29 12:14] LABS: BEDSIDE GLUCOSE 217 MG/DL (83-110)
[2017-12-29] MEDS: DRONABINOL 2.5 MG CAP (MARINOL) PO (16:17)
[2017-12-29 16:49] LABS: BEDSIDE GLUCOSE 117 MG/DL (83-110)
[2017-12-29] MEDS: prednisoLONE ACET 1% OPHTH SUSP 5ML OD (17:05)
[2017-12-29 18:43] LABS: OSMOLALITY URINE 361 MOSM/KG (500-800)
[2017-12-29 19:01] LABS: CHLORIDE,RANDOM URINE 114 MEQ/L; CREATININE,RANDOM URINE 14.2 MG/DL; POTASSIUM RANDOM URINE 21.5 MEQ/L; SODIUM,RANDOM URINE 100 MEQ/L; TOTAL PROTEIN,RANDOM URINE 11.8 MG/DL (0.0-12.0)
[2017-12-29] MEDS: LEVEMIR (INSULIN DETEMIR) 1 UNITS/0.01ML SC (20:32)
[2017-12-30] MEDS: CEFEPIME HCL 2 GM in D5W MINI-BAG PLUS 50 ML IV ×3 (00:17→17:03)
[2017-12-30] MEDS: VANCOMYCIN HCL 750 MG, VIAL MATE ADAPTER 1 EACH in D5W 250 ML IV ×3 (01:23→17:38)
[2017-12-30 02:17] LABS: BEDSIDE GLUCOSE 199 MG/DL (83-110)
[2017-12-30] MEDS: CARVedilol 3.125 MG TAB PO ×2 (05:04)
[2017-12-30 05:40] LABS: BASO % 0.1 % (0.0-1.0); EOS # 0.2 10^3/uL (0.0-0.50); HEMATOCRIT 39.8 % (42.0-52.0); HEMOGLOBIN 13.4 g/dl (13.5-17.5); LYMPH % 6.8 % (24.0-44.0); MEAN CORPUSCULAR HEMOGLOBIN 28.3 pg (27.0-33.0); MEAN CORPUSCULAR HGB CONC 33.7 g/dl (32.0-36.5); MEAN CORPUSCULAR VOLUME 84.1 fl (80.0-96.0); MONO # 0.9 10^3/uL (0.0-0.8); NEUTROPHILS # 12.6 10^3/uL (1.8-7.7); NEUTROPHILS % 85.1 % (36.0-66.0); PLATELET COUNT, AUTOMATED 252 10^3/uL (150-450); RED BLOOD COUNT 4.73 10^6/uL (4.30-6.10); RED CELL DISTRIBUTION WIDTH 13.6 % (11.5-14.5); WHITE BLOOD COUNT 14.8 10^3/uL (4.0-10.0)
[2017-12-30 05:59] LABS: ANION GAP 6 MEQ/L (8-16); BLOOD UREA NITROGEN 23 MG/DL (7-18); C REACTIVE PROTEIN QUANTITATIV 3.43 MG/DL (0.00-0.30); CALCIUM LEVEL 7.1 MG/DL (8.8-10.2); CARBON DIOXIDE LEVEL 32 MEQ/L (21-32); CHLORIDE LEVEL 88 MEQ/L (98-107); CREATININE FOR GFR 0.68 MG/DL (0.70-1.30); GLOMERULAR FILTRATION RATE > 60.0 (>42); GLUCOSE, FASTING 215 MG/DL (70-100); MAGNESIUM LEVEL 2.4 MG/DL (1.8-2.4); POTASSIUM SERUM 3.7 MEQ/L (3.5-5.1); SODIUM LEVEL 126 MEQ/L (136-145)
[2017-12-30 07:44] LABS: BEDSIDE GLUCOSE 232 MG/DL (83-110)
[2017-12-30] MEDS: HumaLOG INSULIN (NovoLOG) PER UNIT SC ×4 (07:56→20:35)
[2017-12-30] MEDS: DRONABINOL 2.5 MG CAP (MARINOL) PO ×3 (07:56→17:03)
[2017-12-30] MEDS: CARVedilol 6.25 MG TAB PO ×2 (09:46→20:29)
[2017-12-30] MEDS: FUROSEMIDE 40 MG/4 ML VIAL (J1940) IV (10:05)
[2017-12-30] MEDS: SENOKOT S TAB PO ×2 (10:05→20:35)
[2017-12-30] MEDS: methylPREDNISolone INJ 40 MG/1 ML VIAL (J2920) IV (10:05)
[2017-12-30] MEDS: PANTOPRAZOLE 40MG INJ (PROTONIX) (C9113) IV (10:05)
[2017-12-30] MEDS: SPIRONOLACTONE 12.5MG PER 1/2 TABLET PO (10:06)
[2017-12-30] MEDS: ATORVASTATIN 20 MG TAB PO (10:06)
[2017-12-30] MEDS: ASPIRIN 81 MG ENTERIC TAB PO (10:07)
[2017-12-30] MEDS: CLOPIDOGREL 75 MG TAB PO (10:07)
[2017-12-30] MEDS: SODIUM CHLORIDE 0.9% INJ 10 ML SYR IV (10:08)
[2017-12-30 11:50] LABS: BEDSIDE GLUCOSE 268 MG/DL (83-110)
[2017-12-30] MEDS: KCL 20MEQ in NS 1000ML 1,000 ML IV (12:11)
[2017-12-30 16:43] LABS: BEDSIDE GLUCOSE 237 MG/DL (83-110)
[2017-12-30] MEDS: prednisoLONE ACET 1% OPHTH SUSP 5ML OD (17:02)
[2017-12-30 20:30] LABS: BEDSIDE GLUCOSE 162 MG/DL (83-110)
[2017-12-30] MEDS: LEVEMIR (INSULIN DETEMIR) 1 UNITS/0.01ML SC (20:35)
[2017-12-30 22:08] LABS: ANION GAP 5 MEQ/L (8-16); BLOOD UREA NITROGEN 21 MG/DL (7-18); CALCIUM LEVEL 7.1 MG/DL (8.8-10.2); CARBON DIOXIDE LEVEL 32 MEQ/L (21-32); CHLORIDE LEVEL 89 MEQ/L (98-107); CREATININE FOR GFR 0.49 MG/DL (0.70-1.30); GLOMERULAR FILTRATION RATE > 60.0 (>42); GLUCOSE, FASTING 139 MG/DL (70-100); POTASSIUM SERUM 3.9 MEQ/L (3.5-5.1); SODIUM LEVEL 126 MEQ/L (136-145)
[2017-12-31] MEDS: ONDANSETRON 4MG/2ML VIAL (J2405) IV (00:13)
[2017-12-31] MEDS: KCL 20MEQ in NS 1000ML 1,000 ML IV ×2 (00:39→20:31)
[2017-12-31] MEDS: CEFEPIME HCL 2 GM in D5W MINI-BAG PLUS 50 ML IV ×3 (00:39→17:11)
[2017-12-31] MEDS: VANCOMYCIN HCL 750 MG, VIAL MATE ADAPTER 1 EACH in D5W 250 ML IV ×2 (01:46→11:14)
[2017-12-31 04:45] LABS: BASO % 0.1 % (0.0-1.0); EOS # 0.5 10^3/uL (0.0-0.50); EOS % 3.5 % (0.0-3.0); HEMATOCRIT 37.3 % (42.0-52.0); HEMOGLOBIN 12.6 g/dl (13.5-17.5); IMMATURE GRANULOCYTE % 1.2 % (0-3.0); LYMPH # 0.9 10^3/uL (1.5-4.5); MEAN CORPUSCULAR HGB CONC 33.8 g/dl (32.0-36.5); MEAN CORPUSCULAR VOLUME 85.9 fl (80.0-96.0); MONO % 7.1 % (0.0-5.0); NEUTROPHILS % 82.1 % (36.0-66.0); PLATELET COUNT, AUTOMATED 247 10^3/uL (150-450); RED BLOOD COUNT 4.34 10^6/uL (4.30-6.10); WHITE BLOOD COUNT 14.6 10^3/uL (4.0-10.0)
[2017-12-31 05:05] LABS: ANION GAP 7 MEQ/L (8-16); BLOOD UREA NITROGEN 17 MG/DL (7-18); CALCIUM LEVEL 6.8 MG/DL (8.8-10.2); CARBON DIOXIDE LEVEL 30 MEQ/L (21-32); CHLORIDE LEVEL 89 MEQ/L (98-107); CREATININE FOR GFR 0.46 MG/DL (0.70-1.30); GLOMERULAR FILTRATION RATE > 60.0 (>42); GLUCOSE, FASTING 168 MG/DL (70-100); MAGNESIUM LEVEL 2.1 MG/DL (1.8-2.4); POTASSIUM SERUM 3.9 MEQ/L (3.5-5.1); SODIUM LEVEL 126 MEQ/L (136-145)
[2017-12-31 07:45] LABS: BEDSIDE GLUCOSE 146 MG/DL (83-110)
[2017-12-31] MEDS: DRONABINOL 2.5 MG CAP (MARINOL) PO ×3 (08:05→17:09)
[2017-12-31] MEDS: HumaLOG INSULIN (NovoLOG) PER UNIT SC ×4 (08:06→20:31)
[2017-12-31] MEDS: ASPIRIN 81 MG ENTERIC TAB PO (10:01)
[2017-12-31] MEDS: ATORVASTATIN 20 MG TAB PO (10:01)
[2017-12-31] MEDS: CLOPIDOGREL 75 MG TAB PO (10:02)
[2017-12-31] MEDS: CARVedilol 6.25 MG TAB PO ×2 (10:02→20:31)
[2017-12-31] MEDS: predniSONE 10 MG TAB PO (10:02)
[2017-12-31] MEDS: PANTOPRAZOLE 40MG INJ (PROTONIX) (C9113) IV (10:03)
[2017-12-31] MEDS: SODIUM CHLORIDE 0.9% INJ 10 ML SYR IV (10:03)
[2017-12-31 11:58] LABS: BEDSIDE GLUCOSE 313 MG/DL (83-110)
[2017-12-31] MEDS: SENOKOT S TAB PO ×2 (12:12→20:31)
[2017-12-31 16:24] LABS: ANION GAP 7 MEQ/L (8-16); BLOOD UREA NITROGEN 16 MG/DL (7-18); CALCIUM LEVEL 7.3 MG/DL (8.8-10.2); CARBON DIOXIDE LEVEL 27 MEQ/L (21-32); CHLORIDE LEVEL 91 MEQ/L (98-107); CREATININE FOR GFR 0.59 MG/DL (0.70-1.30); GLOMERULAR FILTRATION RATE > 60.0 (>42); GLUCOSE, FASTING 206 MG/DL (70-100); POTASSIUM SERUM 4.1 MEQ/L (3.5-5.1); SODIUM LEVEL 125 MEQ/L (136-145)
[2017-12-31] MEDS ORDERED: SALIVA SUBSTITUTE(MOUTHKOTE) BTL MT (16:45)
[2017-12-31 17:01] LABS: BEDSIDE GLUCOSE 220 MG/DL (83-110)
[2017-12-31] MEDS: prednisoLONE ACET 1% OPHTH SUSP 5ML OD (17:11)
[2017-12-31 20:04] LABS: BEDSIDE GLUCOSE 145 MG/DL (83-110)
[2018-01-01] MEDS: CEFEPIME HCL 2 GM in D5W MINI-BAG PLUS 50 ML IV ×3 (00:43→16:21)
[2018-01-01] MEDS: ONDANSETRON 4MG/2ML VIAL (J2405) IV (04:14)
[2018-01-01 04:44] LABS: HEMATOCRIT 35.1 % (42.0-52.0); HEMOGLOBIN 11.9 g/dl (13.5-17.5); MEAN CORPUSCULAR HEMOGLOBIN 29.1 pg (27.0-33.0); MEAN CORPUSCULAR HGB CONC 33.9 g/dl (32.0-36.5); MEAN CORPUSCULAR VOLUME 85.8 fl (80.0-96.0); PLATELET COUNT, AUTOMATED 236 10^3/uL (150-450); RED BLOOD COUNT 4.09 10^6/uL (4.30-6.10); RED CELL DISTRIBUTION WIDTH 14.2 % (11.5-14.5); WHITE BLOOD COUNT 12.4 10^3/uL (4.0-10.0)
[2018-01-01 05:06] LABS: ANION GAP 5 MEQ/L (8-16); BLOOD UREA NITROGEN 12 MG/DL (7-18); CALCIUM LEVEL 7.3 MG/DL (8.8-10.2); CARBON DIOXIDE LEVEL 29 MEQ/L (21-32); CHLORIDE LEVEL 93 MEQ/L (98-107); CREATININE FOR GFR 0.44 MG/DL (0.70-1.30); GLOMERULAR FILTRATION RATE > 60.0 (>42); GLUCOSE, FASTING 167 MG/DL (70-100); NT-PRO BNP 4651 PG/ML (<450); POTASSIUM SERUM 4.3 MEQ/L (3.5-5.1); SODIUM LEVEL 127 MEQ/L (136-145)
[2018-01-01] MEDS: DRONABINOL 2.5 MG CAP (MARINOL) PO ×3 (07:30→17:11)
[2018-01-01] MEDS: ATORVASTATIN 20 MG TAB PO (08:38)
[2018-01-01] MEDS: predniSONE 10 MG TAB PO (08:38)
[2018-01-01] MEDS: CLOPIDOGREL 75 MG TAB PO (08:39)
[2018-01-01] MEDS: CARVedilol 6.25 MG TAB PO ×2 (08:39→19:48)
[2018-01-01] MEDS: SENOKOT S TAB PO ×2 (08:40→19:48)
[2018-01-01] MEDS: ASPIRIN 81 MG ENTERIC TAB PO (08:40)
[2018-01-01] MEDS: PANTOPRAZOLE 40MG INJ (PROTONIX) (C9113) IV (08:40)
[2018-01-01] MEDS: HumaLOG INSULIN (NovoLOG) PER UNIT SC ×4 (08:41→20:05)
[2018-01-01] MEDS: SODIUM CHLORIDE 0.9% INJ 10 ML SYR IV ×2 (09:44→17:00)
[2018-01-01] MEDS: SODIUM CHLORIDE 1 GM TAB PO ×3 (10:17→19:47)
[2018-01-01 11:17] LABS: BEDSIDE GLUCOSE 302 MG/DL (83-110)
[2018-01-01 16:32] LABS: BEDSIDE GLUCOSE 254 MG/DL (83-110)
[2018-01-01] MEDS: prednisoLONE ACET 1% OPHTH SUSP 5ML OD (17:00)
[2018-01-01] MEDS: TAMSULOSIN 0.4 MG CAP PO (19:48)
[2018-01-01 20:00] LABS: BEDSIDE GLUCOSE 201 MG/DL (83-110)
[2018-01-02] MEDS: CEFEPIME HCL 2 GM in D5W MINI-BAG PLUS 50 ML IV ×3 (02:05→17:45)
[2018-01-02] MEDS: ONDANSETRON 4MG/2ML VIAL (J2405) IV (03:56)
[2018-01-02] MEDS: SODIUM CHLORIDE 0.9% INJ 10 ML SYR IV ×4 (05:50→18:27)
[2018-01-02 06:12] LABS: HEMATOCRIT 33.6 % (42.0-52.0); HEMOGLOBIN 11.4 g/dl (13.5-17.5); MEAN CORPUSCULAR HEMOGLOBIN 29.2 pg (27.0-33.0); MEAN CORPUSCULAR HGB CONC 33.9 g/dl (32.0-36.5); MEAN CORPUSCULAR VOLUME 85.9 fl (80.0-96.0); PLATELET COUNT, AUTOMATED 206 10^3/uL (150-450); RED BLOOD COUNT 3.91 10^6/uL (4.30-6.10); RED CELL DISTRIBUTION WIDTH 14.3 % (11.5-14.5); WHITE BLOOD COUNT 10.3 10^3/uL (4.0-10.0)
[2018-01-02 06:40] LABS: ANION GAP 6 MEQ/L (8-16); BLOOD UREA NITROGEN 12 MG/DL (7-18); CALCIUM LEVEL 6.9 MG/DL (8.8-10.2); CARBON DIOXIDE LEVEL 28 MEQ/L (21-32); CHLORIDE LEVEL 93 MEQ/L (98-107); CREATININE FOR GFR 0.45 MG/DL (0.70-1.30); GLOMERULAR FILTRATION RATE > 60.0 (>42); GLUCOSE, FASTING 137 MG/DL (70-100); MAGNESIUM LEVEL 1.8 MG/DL (1.8-2.4); POTASSIUM SERUM 3.9 MEQ/L (3.5-5.1); SODIUM LEVEL 127 MEQ/L (136-145)
[2018-01-02] MEDS: DRONABINOL 2.5 MG CAP (MARINOL) PO ×3 (08:58→16:41)
[2018-01-02] MEDS: CARVedilol 6.25 MG TAB PO ×2 (09:00→20:51)
[2018-01-02] MEDS: MAG SULF 1GM/100ML (MAG RUN) 1 GM in APPROPRIATE DILUENT 1 EA IV (09:00)
[2018-01-02] MEDS: HumaLOG INSULIN (NovoLOG) PER UNIT SC ×4 (09:01→20:51)
[2018-01-02] MEDS: ATORVASTATIN 20 MG TAB PO (10:45)
[2018-01-02] MEDS: predniSONE 10 MG TAB PO (10:47)
[2018-01-02] MEDS: CLOPIDOGREL 75 MG TAB PO (10:48)
[2018-01-02] MEDS: ASPIRIN 81 MG ENTERIC TAB PO (10:51)
[2018-01-02] MEDS: SODIUM CHLORIDE 1 GM TAB PO ×3 (10:51→20:50)
[2018-01-02] MEDS: SENOKOT S TAB PO ×2 (10:52→20:51)
[2018-01-02] MEDS: PANTOPRAZOLE 40MG INJ (PROTONIX) (C9113) IV (10:53)
[2018-01-02 12:18] LABS: BEDSIDE GLUCOSE 221 MG/DL (83-110)
[2018-01-02] MEDS: prednisoLONE ACET 1% OPHTH SUSP 5ML OD (17:00)
[2018-01-02 17:02] LABS: BEDSIDE GLUCOSE 216 MG/DL (83-110)
[2018-01-02 20:45] LABS: BEDSIDE GLUCOSE 234 MG/DL (83-110)
[2018-01-02] MEDS: TAMSULOSIN 0.4 MG CAP PO (20:51)
[2018-01-03] MEDS: CEFEPIME HCL 2 GM in D5W MINI-BAG PLUS 50 ML IV ×3 (00:49→17:45)
[2018-01-03 04:59] LABS: HEMATOCRIT 35.5 % (42.0-52.0); HEMOGLOBIN 12.1 g/dl (13.5-17.5); MEAN CORPUSCULAR HEMOGLOBIN 28.7 pg (27.0-33.0); MEAN CORPUSCULAR HGB CONC 34.1 g/dl (32.0-36.5); MEAN CORPUSCULAR VOLUME 84.3 fl (80.0-96.0); PLATELET COUNT, AUTOMATED 230 10^3/uL (150-450); RED BLOOD COUNT 4.21 10^6/uL (4.30-6.10); RED CELL DISTRIBUTION WIDTH 14.2 % (11.5-14.5); WHITE BLOOD COUNT 10.7 10^3/uL (4.0-10.0)
[2018-01-03 05:23] LABS: ANION GAP 7 MEQ/L (8-16); BLOOD UREA NITROGEN 12 MG/DL (7-18); CALCIUM LEVEL 7.2 MG/DL (8.8-10.2); CARBON DIOXIDE LEVEL 27 MEQ/L (21-32); CHLORIDE LEVEL 90 MEQ/L (98-107); CREATININE FOR GFR 0.41 MG/DL (0.70-1.30); GLOMERULAR FILTRATION RATE > 60.0 (>42); GLUCOSE, FASTING 160 MG/DL (70-100); MAGNESIUM LEVEL 1.8 MG/DL (1.8-2.4); POTASSIUM SERUM 4.1 MEQ/L (3.5-5.1); SODIUM LEVEL 124 MEQ/L (136-145)
[2018-01-03 07:01] LABS: BEDSIDE GLUCOSE 179 MG/DL (83-110)
[2018-01-03] MEDS: DRONABINOL 2.5 MG CAP (MARINOL) PO ×2 (07:30→11:35)
[2018-01-03] MEDS: HumaLOG INSULIN (NovoLOG) PER UNIT SC ×4 (07:56→23:57)
[2018-01-03] MEDS: CARVedilol 6.25 MG TAB PO (07:57)
[2018-01-03] MEDS: SENOKOT S TAB PO (07:57)
[2018-01-03] MEDS: CLOPIDOGREL 75 MG TAB PO (07:57)
[2018-01-03] MEDS: ATORVASTATIN 20 MG TAB PO (07:57)
[2018-01-03] MEDS: SODIUM CHLORIDE 1 GM TAB PO ×2 (07:57→15:13)
[2018-01-03] MEDS: predniSONE 10 MG TAB PO (07:57)
[2018-01-03] MEDS: ASPIRIN 81 MG ENTERIC TAB PO (07:57)
[2018-01-03] MEDS: LORazepam 2 MG/ML VIAL (J2060) IV (08:55)
[2018-01-03] MEDS ORDERED: PROHANCE 279.3MG/ML 15ML VIAL (A9576) As Ordered (09:03)
[2018-01-03] MEDS: SODIUM CHLORIDE 0.9% INJ 10 ML SYR IV (11:34)
[2018-01-03] MEDS: NS 1,000 ML IV (11:41)
[2018-01-03] MEDS: PANTOPRAZOLE 40MG INJ (PROTONIX) (C9113) IV (11:41)
[2018-01-03 12:42] LABS: ANION GAP 7 MEQ/L (8-16); BLOOD UREA NITROGEN 10 MG/DL (7-18); CALCIUM LEVEL 7.2 MG/DL (8.8-10.2); CARBON DIOXIDE LEVEL 26 MEQ/L (21-32); CHLORIDE LEVEL 91 MEQ/L (98-107); CPK CREATINE PHOSPHOKINASE 35 U/L (39-308); CREATININE FOR GFR 0.45 MG/DL (0.70-1.30); GLOMERULAR FILTRATION RATE > 60.0 (>42); GLUCOSE, FASTING 169 MG/DL (70-100); MB/CK RELATIVE INDEX 3.43 (< OR =4); POTASSIUM SERUM 3.8 MEQ/L (3.5-5.1); SODIUM LEVEL 124 MEQ/L (136-145); TROPONIN I 0.44 NG/ML (< 0.10)
[2018-01-03] MEDS: methylPREDNISolone INJ 40 MG/1 ML VIAL (J2920) IV (14:59)
[2018-01-03] MEDS: ASPIRIN 300 MG SUPP PR (15:12)
[2018-01-03] MEDS: prednisoLONE ACET 1% OPHTH SUSP 5ML OD (17:00)
[2018-01-03 17:49] LABS: SODIUM,RANDOM URINE 125 MEQ/L
[2018-01-03 17:56] LABS: OSMOLALITY URINE 620 MOSM/KG (500-800)
[2018-01-03] MEDS: SODIUM CHLORIDE 3% 500 ML IV (18:22)
[2018-01-03 18:38] LABS: ANION GAP 7 MEQ/L (8-16); BLOOD UREA NITROGEN 11 MG/DL (7-18); CALCIUM LEVEL 7.3 MG/DL (8.8-10.2); CARBON DIOXIDE LEVEL 26 MEQ/L (21-32); CHLORIDE LEVEL 89 MEQ/L (98-107); CPK CREATINE PHOSPHOKINASE 35 U/L (39-308); CREATININE FOR GFR 0.46 MG/DL (0.70-1.30); GLOMERULAR FILTRATION RATE > 60.0 (>42); GLUCOSE, FASTING 198 MG/DL (70-100); MB/CK RELATIVE INDEX 3.71 (< OR =4); POTASSIUM SERUM 4.1 MEQ/L (3.5-5.1); SODIUM LEVEL 122 MEQ/L (136-145); TROPONIN I 0.41 NG/ML (< 0.10)
[2018-01-03] MEDS: HEPARIN SOD (PORCINE) 5000 UNITS/ML VIAL SQ (20:12)
[2018-01-03 22:24] LABS: ANION GAP 7 MEQ/L (8-16); BLOOD UREA NITROGEN 12 MG/DL (7-18); CALCIUM LEVEL 7.1 MG/DL (8.8-10.2); CARBON DIOXIDE LEVEL 25 MEQ/L (21-32); CHLORIDE LEVEL 91 MEQ/L (98-107); GLOMERULAR FILTRATION RATE > 60.0 (>42); GLUCOSE, FASTING 196 MG/DL (70-100); SODIUM LEVEL 123 MEQ/L (136-145)
[2018-01-04 00:02] LABS: BEDSIDE GLUCOSE 175 MG/DL (83-110)
[2018-01-04] MEDS: methylPREDNISolone INJ 40 MG/1 ML VIAL (J2920) IV ×2 (01:32→16:00)
[2018-01-04] MEDS: CEFEPIME HCL 2 GM in D5W MINI-BAG PLUS 50 ML IV ×3 (01:32→16:00)
[2018-01-04 02:26] LABS: ANION GAP 8 MEQ/L (8-16); BLOOD UREA NITROGEN 11 MG/DL (7-18); CARBON DIOXIDE LEVEL 25 MEQ/L (21-32); CHLORIDE LEVEL 94 MEQ/L (98-107); CREATININE FOR GFR 0.51 MG/DL (0.70-1.30); GLOMERULAR FILTRATION RATE > 60.0 (>42); GLUCOSE, FASTING 126 MG/DL (70-100); POTASSIUM SERUM 3.8 MEQ/L (3.5-5.1); SODIUM LEVEL 127 MEQ/L (136-145)
[2018-01-04] MEDS: SODIUM CHLORIDE 0.9% INJ 10 ML SYR IV ×2 (04:15→08:44)
[2018-01-04 05:55] LABS: HEMOGLOBIN 12.9 g/dl (13.5-17.5); MEAN CORPUSCULAR HEMOGLOBIN 28.7 pg (27.0-33.0); MEAN CORPUSCULAR HGB CONC 34.9 g/dl (32.0-36.5); MEAN CORPUSCULAR VOLUME 82.4 fl (80.0-96.0); PLATELET COUNT, AUTOMATED 233 10^3/uL (150-450); RED BLOOD COUNT 4.49 10^6/uL (4.30-6.10); RED CELL DISTRIBUTION WIDTH 14.4 % (11.5-14.5); WHITE BLOOD COUNT 12.8 10^3/uL (4.0-10.0)
[2018-01-04 06:32] LABS: ALBUMIN 2.1 GM/DL (3.2-5.2); ALBUMIN/GLOBULIN RATIO 0.57 (1.00-1.93); ALKALINE PHOSPHATASE 89 U/L (45-117); ALT/SGPT 29 U/L (12-78); ANION GAP 8 MEQ/L (8-16); AST/SGOT 21 U/L (7-37); BILIRUBIN,TOTAL 0.7 MG/DL (0.2-1.0); BLOOD UREA NITROGEN 10 MG/DL (7-18); CALCIUM LEVEL 7.1 MG/DL (8.8-10.2); CARBON DIOXIDE LEVEL 24 MEQ/L (21-32); CHLORIDE LEVEL 93 MEQ/L (98-107); GLOMERULAR FILTRATION RATE > 60.0 (>42); GLUCOSE, FASTING 144 MG/DL (70-100); MAGNESIUM LEVEL 1.9 MG/DL (1.8-2.4); POTASSIUM SERUM 4.1 MEQ/L (3.5-5.1); SODIUM LEVEL 125 MEQ/L (136-145); TOTAL PROTEIN 5.8 GM/DL (6.4-8.2)
[2018-01-04] MEDS: HumaLOG INSULIN (NovoLOG) PER UNIT SC ×3 (06:36→18:45)
[2018-01-04] MEDS: SODIUM CHLORIDE 3% 500 ML IV (07:51)
[2018-01-04 08:21] LABS: OSMOLALITY URINE 561 MOSM/KG (500-800)
[2018-01-04 08:39] LABS: CHLORIDE,RANDOM URINE 126 MEQ/L; POTASSIUM RANDOM URINE 27.8 MEQ/L; SODIUM,RANDOM URINE 140 MEQ/L
[2018-01-04] MEDS: PANTOPRAZOLE 40MG INJ (PROTONIX) (C9113) IV (08:47)
[2018-01-04] MEDS: ASPIRIN 300 MG SUPP PR (08:49)
[2018-01-04] MEDS: HEPARIN SOD (PORCINE) 5000 UNITS/ML VIAL SQ ×2 (08:49→20:55)
[2018-01-04 10:50] LABS: ANION GAP 10 MEQ/L (8-16); BLOOD UREA NITROGEN 11 MG/DL (7-18); CALCIUM LEVEL 7.1 MG/DL (8.8-10.2); CARBON DIOXIDE LEVEL 23 MEQ/L (21-32); CHLORIDE LEVEL 94 MEQ/L (98-107); CREATININE FOR GFR 0.48 MG/DL (0.70-1.30); GLOMERULAR FILTRATION RATE > 60.0 (>42); GLUCOSE, FASTING 132 MG/DL (70-100); POTASSIUM SERUM 3.9 MEQ/L (3.5-5.1); SODIUM LEVEL 127 MEQ/L (136-145); URIC ACID 1.4 MG/DL (3.5-7.2)
[2018-01-04 12:22] LABS: BEDSIDE GLUCOSE 144 MG/DL (83-110)
[2018-01-04 13:17] LABS: ANION GAP 9 MEQ/L (8-16); BLOOD UREA NITROGEN 12 MG/DL (7-18); CALCIUM LEVEL 7.1 MG/DL (8.8-10.2); CARBON DIOXIDE LEVEL 24 MEQ/L (21-32); CHLORIDE LEVEL 95 MEQ/L (98-107); GLOMERULAR FILTRATION RATE > 60.0 (>42); GLUCOSE, FASTING 145 MG/DL (70-100); POTASSIUM SERUM 3.9 MEQ/L (3.5-5.1); SODIUM LEVEL 128 MEQ/L (136-145)
[2018-01-04] MEDS: prednisoLONE ACET 1% OPHTH SUSP 5ML OD (16:02)
[2018-01-04 18:21] LABS: ANION GAP 8 MEQ/L (8-16); BLOOD UREA NITROGEN 12 MG/DL (7-18); CARBON DIOXIDE LEVEL 25 MEQ/L (21-32); CHLORIDE LEVEL 94 MEQ/L (98-107); CREATININE FOR GFR 0.49 MG/DL (0.70-1.30); GLOMERULAR FILTRATION RATE > 60.0 (>42); GLUCOSE, FASTING 160 MG/DL (70-100); POTASSIUM SERUM 3.9 MEQ/L (3.5-5.1); SODIUM LEVEL 127 MEQ/L (136-145)
[2018-01-04 18:44] LABS: BEDSIDE GLUCOSE 167 MG/DL (83-110)
[2018-01-04 22:25] LABS: ANION GAP 8 MEQ/L (8-16); BLOOD UREA NITROGEN 13 MG/DL (7-18); CALCIUM LEVEL 7.1 MG/DL (8.8-10.2); CARBON DIOXIDE LEVEL 24 MEQ/L (21-32); CHLORIDE LEVEL 96 MEQ/L (98-107); CREATININE FOR GFR 0.41 MG/DL (0.70-1.30); GLOMERULAR FILTRATION RATE > 60.0 (>42); GLUCOSE, FASTING 183 MG/DL (70-100); SODIUM LEVEL 128 MEQ/L (136-145)
[2018-01-05 00:25] LABS: BEDSIDE GLUCOSE 168 MG/DL (83-110)
[2018-01-05] MEDS: methylPREDNISolone INJ 40 MG/1 ML VIAL (J2920) IV (01:20)
[2018-01-05] MEDS: CEFEPIME HCL 2 GM in D5W MINI-BAG PLUS 50 ML IV ×2 (01:20→09:18)
[2018-01-05 02:34] LABS: ANION GAP 9 MEQ/L (8-16); BLOOD UREA NITROGEN 14 MG/DL (7-18); CALCIUM LEVEL 7.3 MG/DL (8.8-10.2); CARBON DIOXIDE LEVEL 23 MEQ/L (21-32); CHLORIDE LEVEL 99 MEQ/L (98-107); CREATININE FOR GFR 0.52 MG/DL (0.70-1.30); GLOMERULAR FILTRATION RATE > 60.0 (>42); GLUCOSE, FASTING 170 MG/DL (70-100); POTASSIUM SERUM 4.1 MEQ/L (3.5-5.1); SODIUM LEVEL 131 MEQ/L (136-145)
[2018-01-05] MEDS: NS 1,000 ML IV (03:53)
[2018-01-05] MEDS: HumaLOG INSULIN (NovoLOG) PER UNIT SC ×3 (06:00→11:13)
[2018-01-05 06:20] LABS: HEMATOCRIT 39.3 % (42.0-52.0); HEMOGLOBIN 13.5 g/dl (13.5-17.5); MEAN CORPUSCULAR HEMOGLOBIN 29.4 pg (27.0-33.0); MEAN CORPUSCULAR HGB CONC 34.4 g/dl (32.0-36.5); MEAN CORPUSCULAR VOLUME 85.6 fl (80.0-96.0); PLATELET COUNT, AUTOMATED 260 10^3/uL (150-450); RED BLOOD COUNT 4.59 10^6/uL (4.30-6.10); RED CELL DISTRIBUTION WIDTH 14.6 % (11.5-14.5); WHITE BLOOD COUNT 14.6 10^3/uL (4.0-10.0)
[2018-01-05 06:53] LABS: ALBUMIN 2.3 GM/DL (3.2-5.2); ALBUMIN/GLOBULIN RATIO 0.72 (1.00-1.93); ALKALINE PHOSPHATASE 86 U/L (45-117); ALT/SGPT 28 U/L (12-78); ANION GAP 11 MEQ/L (8-16); AST/SGOT 19 U/L (7-37); BILIRUBIN,TOTAL 0.5 MG/DL (0.2-1.0); BLOOD UREA NITROGEN 14 MG/DL (7-18); CALCIUM LEVEL 7.1 MG/DL (8.8-10.2); CARBON DIOXIDE LEVEL 23 MEQ/L (21-32); CHLORIDE LEVEL 97 MEQ/L (98-107); CREATININE FOR GFR 0.37 MG/DL (0.70-1.30); GLOMERULAR FILTRATION RATE > 60.0 (>42); GLUCOSE, FASTING 148 MG/DL (70-100); MAGNESIUM LEVEL 2.2 MG/DL (1.8-2.4); POTASSIUM SERUM 4.2 MEQ/L (3.5-5.1); SODIUM LEVEL 131 MEQ/L (136-145); TOTAL PROTEIN 5.5 GM/DL (6.4-8.2)
[2018-01-05] MEDS: CARVedilol 6.25 MG TAB PO (08:59)
[2018-01-05] MEDS: SODIUM CHLORIDE 1 GM TAB PO (09:00)
[2018-01-05] MEDS: CLOPIDOGREL 75 MG TAB PO (09:00)
[2018-01-05] MEDS: SENOKOT S TAB PO (09:00)
[2018-01-05] MEDS: ATORVASTATIN 20 MG TAB PO (09:00)
[2018-01-05] MEDS: SODIUM CHLORIDE 0.9% INJ 10 ML SYR IV (09:00)
[2018-01-05] MEDS: PANTOPRAZOLE 40MG INJ (PROTONIX) (C9113) IV (09:00)
[2018-01-05] MEDS: HEPARIN SOD (PORCINE) 5000 UNITS/ML VIAL SQ (09:13)
[2018-01-05] MEDS: ASPIRIN 300 MG SUPP PR (09:14)
[2018-01-05 10:55] LABS: ANION GAP 9 MEQ/L (8-16); BLOOD UREA NITROGEN 15 MG/DL (7-18); CALCIUM LEVEL 7.3 MG/DL (8.8-10.2); CARBON DIOXIDE LEVEL 22 MEQ/L (21-32); CHLORIDE LEVEL 97 MEQ/L (98-107); CREATININE FOR GFR 0.44 MG/DL (0.70-1.30); GLOMERULAR FILTRATION RATE > 60.0 (>42); GLUCOSE, FASTING 191 MG/DL (70-100); POTASSIUM SERUM 3.9 MEQ/L (3.5-5.1); SODIUM LEVEL 128 MEQ/L (136-145)
[2018-01-05] MEDS: DRONABINOL 2.5 MG CAP (MARINOL) PO (11:13)
[2018-01-05] MEDS ORDERED: SODIUM CHLORIDE 3% 500 ML IV (12:00)
[2018-01-05] MEDS ORDERED: BISACODYL 10 MG SUPP PR (12:45)
[2018-01-05] MEDS ORDERED: FLEET ENEMA PR (12:45)
[2018-01-05] MEDS: MORPHINE 10MG/0.5ML ORAL CONCENTRATE SOLUTION U/D SL ×3 (14:35→21:27)
[2018-01-05] MEDS: SCOPOLAMINE 1MG TRANSDERMAL PATCH TOP (16:06)
[2018-01-05] MEDS: prednisoLONE ACET 1% OPHTH SUSP 5ML OD (16:47)
[2018-01-06] MEDS: MORPHINE 10MG/0.5ML ORAL CONCENTRATE SOLUTION U/D SL ×5 (03:42→21:48)
[2018-01-06] MEDS: SODIUM CHLORIDE 0.9% INJ 10 ML SYR IV (08:31)
[2018-01-06] MEDS: PANTOPRAZOLE 40MG INJ (PROTONIX) (C9113) IV (08:31)
[2018-01-06] MEDS: prednisoLONE ACET 1% OPHTH SUSP 5ML OD (17:34)
[2018-01-07] MEDS: MORPHINE 10MG/0.5ML ORAL CONCENTRATE SOLUTION U/D SL ×4 (01:10→20:36)
[2018-01-07] MEDS: SODIUM CHLORIDE 0.9% INJ 10 ML SYR IV (08:15)
[2018-01-07] MEDS: PANTOPRAZOLE 40MG INJ (PROTONIX) (C9113) IV (08:15)
[2018-01-07] MEDS: HYOSCYAMINE SULFATE 0.125 MG SUBL TABLET PO ×2 (08:25→20:37)
[2018-01-07] MEDS: prednisoLONE ACET 1% OPHTH SUSP 5ML OD (17:00)
[2018-01-08] MEDS: MORPHINE 10MG/0.5ML ORAL CONCENTRATE SOLUTION U/D SL ×4 (04:00→19:47)
[2018-01-08] MEDS: SODIUM CHLORIDE 0.9% INJ 10 ML SYR IV (09:37)
[2018-01-08] MEDS: PANTOPRAZOLE 40MG INJ (PROTONIX) (C9113) IV (09:37)
[2018-01-08] MEDS: prednisoLONE ACET 1% OPHTH SUSP 5ML OD (17:18)
[2018-01-08] MEDS: SCOPOLAMINE 1MG TRANSDERMAL PATCH TOP (19:27)
[2018-01-09] MEDS: MORPHINE 10MG/0.5ML ORAL CONCENTRATE SOLUTION U/D SL (02:55)
[2018-01-09] MEDS: LORazepam 2 MG/ML VIAL (J2060) IV ×3 (03:22→18:10)
[2018-01-09] MEDS: PANTOPRAZOLE 40MG INJ (PROTONIX) (C9113) IV (08:47)
[2018-01-09] MEDS: SODIUM CHLORIDE 0.9% INJ 10 ML SYR IV (08:48)
[2018-01-09] MEDS: MORPHINE 4 MG/ML 1ML VIAL/SYRINGE (J2270) IV ×7 (09:55→23:12)
[2018-01-09] MEDS: prednisoLONE ACET 1% OPHTH SUSP 5ML OD (16:24)
[2018-01-10] MEDS: MORPHINE 4 MG/ML 1ML VIAL/SYRINGE (J2270) IV ×9 (01:33→22:57)
[2018-01-10] MEDS: SODIUM CHLORIDE 0.9% INJ 10 ML SYR IV ×2 (03:43→08:36)
[2018-01-10] MEDS: PANTOPRAZOLE 40MG INJ (PROTONIX) (C9113) IV (08:36)
[2018-01-10] MEDS: prednisoLONE ACET 1% OPHTH SUSP 5ML OD (17:00)
[2018-01-11] MEDS: LORazepam 2 MG/ML VIAL (J2060) IV ×3 (01:38→22:06)
[2018-01-11] MEDS: SODIUM CHLORIDE 0.9% INJ 10 ML SYR IV ×5 (04:15→17:30)
[2018-01-11] MEDS: MORPHINE 4 MG/ML 1ML VIAL/SYRINGE (J2270) IV ×9 (04:15→23:02)
[2018-01-11] MEDS: PANTOPRAZOLE 40MG INJ (PROTONIX) (C9113) IV (09:24)
[2018-01-11] MEDS: SCOPOLAMINE 1MG TRANSDERMAL PATCH TOP (11:47)
[2018-01-11] MEDS: prednisoLONE ACET 1% OPHTH SUSP 5ML OD (17:00)
[2018-01-12] MEDS: LORazepam 2 MG/ML VIAL (J2060) IV ×4 (00:21→10:25)
[2018-01-12] MEDS: MORPHINE 4 MG/ML 1ML VIAL/SYRINGE (J2270) IV ×4 (01:14→09:06)
[2018-01-12] MEDS: PANTOPRAZOLE 40MG INJ (PROTONIX) (C9113) IV (09:06)
[2018-01-12] MEDS: SODIUM CHLORIDE 0.9% INJ 10 ML SYR IV (09:07)
[2018-01-12] MEDS ORDERED: EPIDURAL/PCA KEYS XX (10:30)
[2018-01-12] MEDS: MORPHINE SULF IN 0.9% NACL 100 MG in APPROPRIATE DILUENT 1 EA IV (10:45)
[2018-01-12] MEDS: NS 1,000 ML IV (10:45)
[2018-01-12] MEDS: prednisoLONE ACET 1% OPHTH SUSP 5ML OD (17:00)
[2018-01-13] MEDS: PANTOPRAZOLE 40MG INJ (PROTONIX) (C9113) IV (10:30)
[2018-01-13] MEDS: SODIUM CHLORIDE 0.9% INJ 10 ML SYR IV (10:31)
[2018-01-13] MEDS: NS 1,000 ML IV (11:23)
[2018-01-13] MEDS: MORPHINE SULF IN 0.9% NACL 100 MG in APPROPRIATE DILUENT 1 EA IV (11:23)
[2018-01-13] MEDS: prednisoLONE ACET 1% OPHTH SUSP 5ML OD (17:26)
[2018-01-13] MEDS: LORazepam 2 MG/ML VIAL (J2060) IV (21:57)
[2018-01-14] MEDS: LORazepam 2 MG/ML VIAL (J2060) IV (01:59)
[2018-01-14] MEDS: SODIUM CHLORIDE 0.9% INJ 10 ML SYR IV (09:00)
[2018-01-14] MEDS: MORPHINE SULF IN 0.9% NACL 100 MG in APPROPRIATE DILUENT 1 EA IV (11:30)
[2018-01-14] MEDS: NS 1,000 ML IV (11:30)
[2018-01-14] MEDS: prednisoLONE ACET 1% OPHTH SUSP 5ML OD (16:47)
[2018-01-15] MEDS: SODIUM CHLORIDE 0.9% INJ 10 ML SYR IV (08:46)
[2018-01-15] MEDS: NS 1,000 ML IV (10:25)
[2018-01-15] MEDS: MORPHINE SULF IN 0.9% NACL 100 MG in APPROPRIATE DILUENT 1 EA IV (11:47)
[2018-01-15] MEDS: prednisoLONE ACET 1% OPHTH SUSP 5ML OD (16:26)
== END 2018-01-15 19:28 | disposition expired ==
LOC: M PCU 12-31 17:21 → M ICU 01-03 07:23 → M MSPAV 01-05 14:45 → M ICU 12-25 08:51 → M ED 19:00 → M ED INP 22:13 → M MSPAV 23:38
DX: I21.4 Non-ST elevation (NSTEMI) myocardial infarction (principal); J18.9 Pneumonia, unspecified organism; J96.01 Acute respiratory failure with hypoxia; I50.21 Acute systolic (congestive) heart failure; I63.443 Cerebral infarction due to embolism of bilateral cerebellar arteries; I63.411 Cerebral infarction due to embolism of right middle cerebral artery; G93.6 Cerebral edema; C79.51 Secondary malignant neoplasm of bone; J90 Pleural effusion, not elsewhere classified; J84.9 Interstitial pulmonary disease, unspecified; C34.90 Malignant neoplasm of unspecified part of unspecified bronchus or lung; J44.0 Chronic obstructive pulmonary disease with (acute) lower respiratory infection; I51.81 Takotsubo syndrome; E22.2 Syndrome of inappropriate secretion of antidiuretic hormone; N17.9 Acute kidney failure, unspecified; G81.92 Hemiplegia, unspecified affecting left dominant side; I24.8 Other forms of acute ischemic heart disease; Z51.5 Encounter for palliative care; Z66 Do not resuscitate; E09.9 Drug or chemical induced diabetes mellitus without complications; I27.20 Pulmonary hypertension, unspecified; K21.9 Gastro-esophageal reflux disease without esophagitis; Z87.891 Personal history of nicotine dependence; Z79.899 Other long term (current) drug therapy; Z79.82 Long term (current) use of aspirin; Z88.0 Allergy status to penicillin